=== PATIENT | female | born 1975 ===

== ENCOUNTER 2023-11-28 08:08 | Day surgery (SDC) | payer OTHER ==
[2023-11-28] MEDS ORDERED: fentaNYL CITRATE 50 MCG/ML AMPUL IV PUSH ONE (15:00)
[2023-11-28] MEDS ORDERED: DIPHENHYDRAMINE HCL 50 MG/ML VIAL 1ML IV ONE (15:00)
[2023-11-28] MEDS ORDERED: MIDAZOLAM HCL 2 MG/2 ML VIAL IV ONE (15:00)
[2023-11-28] MEDS ORDERED: ONDANSETRON HCL 2 MG/ML VIAL IV ONE (15:00)
== END 2023-11-28 16:05 | disposition home or self-care (01) ==
LOC: AMB-ENDOS 08:08
PROVIDERS: ATTEND Colon & Rectal Surgery
DX: K57.30 Diverticulosis of large intestine without perforation or abscess without bleeding (principal); Z88.6 Allergy status to analgesic agent; Z88.1 Allergy status to other antibiotic agents